=== PATIENT | female | born 1970 | race Caucasian/White ===

== ENCOUNTER → 2016-06-10 | Outpatient (CLI) | payer BC ==
[~2016-06-10] MED LIST: BCPILLS PO; TRAM-10 PO
--- NOTE | 2016-06-10 17:12 | MAMMOGRAPHY REPORT ---
BILATERAL DIGITAL SCREENING MAMMOGRAM TOMOSYNTHESIS WITH CAD: 06/10/2016 CLINICAL HISTORY: Routine screening. Patient has no complaints. TECHNIQUE: Breast tomosynthesis in addition to standard 2D mammography was performed. Current study was also evaluated with a Computer Aided Detection (CAD) system. COMPARISON: Comparison is made to exams dated: 05/07/2015 mammogram, 04/03/2014 mammogram, 04/03/2014 u ltrasound, 07/10/2013 mammogram, 01/06/2013 mammogram, and 12/27/2012 mammogram - [facility]. BREAST COMPOSITION: The tissue of both breasts is heterogeneously dense, which may obscure small ma sses. FINDINGS: There is a newly visualized 7 mm mass in the 4:00 posterior right breast, for which addit ional targeted ultrasound and possible additional mammographic views are recommended. No other suspicious mass, architectural distortion or cluster of microcalcifications is seen bilater ally. IMPRESSION: ACR BI-RADS CATEGORY 0: INCOMPLETE EVALUATION: NEED ADDITIONAL IMAGING EVALUATION The newly visualized 7 mm mass in the right 4:00 breast needs additional evaluation. The patient will be called to schedule an appointment. Approximately 10% of breast cancers are not detected with mammography. A negative mammographic repor t should not delay biopsy if a clinically suggestive mass is present. Cheri Hayes M.D. ay/:06/10/2016 16:51:15 Machine Clothing Man: Dean BOONE(Kate)(Willi), [facility] letter sent: Addl Imaging 0 BI-RADS Code: ACR BI-RADS Category 0: Incomplete Evaluation: Need Additional Imaging Evaluation
== END | disposition home or self-care (01) ==
LOC: C.MAMM 16:03
PROVIDERS: ATTEND Obstetrics & Gynecology
DX: Z12.31 Encounter for screening mammogram for malignant neoplasm of breast (principal); N63 Unspecified lump in breast

== ENCOUNTER → 2016-06-30 | Outpatient (CLI) | payer BC ==
--- NOTE | 2016-06-30 16:35 | MAMMOGRAPHY REPORT ---
ULTRASOUND OF RIGHT BREAST: 06/30/2016 CLINICAL HISTORY: 46-year-old woman called back from screening mammography for a newly visualized ma ss in the 4:00 right breast. No family history of breast cancer. COMPARISON: Comparison is made to exams dated: 04/03/2014 ultrasound, 07/10/2013 mammogram, 01/06/2013 mammogram, and 12/27/2012 mammogram - [facility]. FINDINGS: Real-time high-resolution sonographic evaluation was performed in the medial right breast . In 4:00 axis, 6 cm from the nipple, there is a multilobulated predominantly anechoic cystic appea ring mass with posterior acoustic enhancement. This measures 6.0 x 3.2 x 6.0 mm. This most likely represents a small cyst cluster or focal fibrocystic changes. The size, shape and location correlat e well with the mammographic mass seen on the cc view in the medial, posterior breast. Incidentally identified in the 2:00 right breast, 2 cm from the nipple is an oval parallel circumscribed slightl y hypoechoic solid versus cystic mass. This measures 5.7 x 4.3 x 8.2 mm. Additional sonographic evaluation was performed in the area of linear vertical skin erythema in the midsternum. There is no evidence of focal skin thickening or an intradermal lesion. No subcutaneou s solid or cystic mass is seen. IMPRESSION: ACR-BI-RADS CATEGORY 3: PROBABLY BENIGN - FOLLOW-UP RECOMMENDED 1. There is a multilobulated cystic appearing mass in the 4:00 right breast on ultrasound measuring 6 mm in maximum dimension, thought to correlate with the newly visualized mammographic mass. This most likely represents a lobulated cyst or small cyst cluster. 2. Incidentally seen is a benign appearing solid versus cystic slightly hypoechoic mass in the 2:00 right breast on ultrasound, not definitely seen mammographically even in retrospect. This could re present a complicated cyst or a benign solid mass such as a fibroadenoma. Options of follow-up seri al ultrasounds versus core needle biopsy were provided. If biopsy is preferred, would also aspirate the multilobulated cyst in the 4:00 right breast at the same time. Otherwise can follow-up both ar eas in 6 months. These results and recommendations were discussed with the patient at the time of the exam. She will consider her follow-up options and call our office to schedule her follow-up appointment. Cheri Hayes M.D. ay/:06/30/2016 14:56:58 Legal Referee: Dr. Cheri Hayes, [facility] letter sent: Follow Up Recommended 3 BI-RADS Code: ACR-BI-RADS Category 3: Probably Benign
== END | disposition home or self-care (01) ==
LOC: C.MAMM 14:03
PROVIDERS: ATTEND Obstetrics & Gynecology
DX: N63 Unspecified lump in breast (principal)

== ENCOUNTER → 2016-07-08 | Outpatient (CLI) | payer BC ==
--- NOTE | 2016-07-08 09:06 | Discharge Instructions ---
Discharge Instructions Procedure Procedure Date: Jul 08, 2016. Reason for visit: Right Mass/Cyst Aspiration. Discharge Discharge Date: Jul 08, 2016. Discharge Diagnosis: status post breast biopsy Instructions Activity Recommendations: Additional Limitations (see below) Return to School/Work: no limitations Recommended Home Diet: No Limitations Provider Instructions: ACTIVITY RECOMMENDATIONS: * No lifting, pushing, pulling or exercising the affected side for three days. RETURN TO SCHOOL/WORK: * You may return to work/school after the procedure, but do not perform any strenuous activities for 24 to 48 hours. MEDICATIONS: * Tylenol (two 325 mg) every four to six hours if needed for mild pain (if not allergic to Tylenol). DIET: * Resume previous diet. SPECIAL CARE INSTRUCTIONS: * Keep biopsy site dry for 24 hours. May shower after 24 hours, but do not soak (bathe) incision. * May remove Tegaderm (plastic patch) tomorrow AFTER showering. * Leave the steri-strips on for one week. Allow the steri-strips to fall off by themselves. If not off after one week, you may remove them. You may place a Bandaid crosswise over the strips, if desired. * Apply ice 10 minutes on and 10 minutes off as needed. * Wear a bra at bedtime to sleep more comfortably for 2-3 days. * Your referring physician should have the results after approximately 5 to 7 business days. * Call for unusual bleeding, fever, drainage, etc or if you have any questions call during normal business hours or after hours call Dr Macias, [phone]. FOLLOW UP VISIT: Follow-up with Referring Physician as scheduled. Allergies Coded Allergies: No Known Allergies (Verified Allergy, Unknown, 06/13/03) Jonathan Mary Recommendations: Call your doctor if: * Temperature above 101 degrees * Pain not relieved by pain medicine ordered * There is increased drainage or redness from any incision * You have any unanswered questions or concerns. Your Doctors Instructions noted above were prepared by provider Martha Macias. Patient Signature Section: Patient Instructions Signature Page Rika Blair Patient (or Guardian) Signature/Date: I have read and understand the instructions given to me by my caregivers. Caregiver/RN/Doctor Signature/Date: The above-named patient and/or guardian has received patient instructions on this date. + Original Patient Signature Page (only) stays with chart. Please make copy for patient.
--- NOTE | 2016-07-08 12:37 | MAMMOGRAPHY REPORT ---
ULTRASOUND GUIDED BIOPSY RIGHT BREAST: 07/08/2016 CLINICAL HISTORY: Right 2:00 breast mass. PATIENT CONSENT: The procedure, risks and benefits were discussed with the patient and informed writ ten consent was obtained. A timeout was performed immediately prior to the procedure. PROCEDURE DESCRIPTION: With ultrasound guidance, aseptic technique, and lidocaine as the local anest hetic (1% lidocaine to anesthetize the skin and 1% lidocaine with epinephrine to anesthetize the kostas per tissues), the mass of concern in the right 2:00 breast was sampled 3 times with a 14-gauge Achie ve biopsy needle. Immediately thereafter, with ultrasound guidance, aseptic technique, and lidocain e as the local anesthetic, a metallic localizer clip was placed centrally in the mass. Direct press ure was applied to the site immediately post procedure and hemostasis was achieved. Postprocedure u nilateral mammograms were performed to confirm placement of the clip in the expected location of the breast mass. The patient tolerated the procedure without complication. She was given wound care instructions. The specimens were sent to pathology for analysis. COMPARISON: Comparison is made to exams dated: 06/30/2016 ultrasound, 06/10/2016 mammogram, 05/07/2015 m ammogram, 04/03/2014 mammogram, 07/10/2013 mammogram, and 01/06/2013 mammogram - [facility]. IMPRESSION: ULTRASOUND GUIDED BIOPSY Ultrasound-guided core needle biopsy of the right 2:00 breast mass, with clip placement. The patien t will receive pathology results from her referring provider. Martha Macias M.D. /:07/08/2016 09:11:17 Health Program Specialist: Latisha BOONE(Kate)(M), [facility]
--- NOTE | 2016-07-08 12:37 | MAMMOGRAPHY REPORT ---
ASPIRATION RIGHT BREAST: 07/08/2016 CLINICAL HISTORY: Right 4:00 breast cyst. PATIENT CONSENT: The procedure and risks of ultrasound-guided cyst aspiration were discussed in full with the patient. Both oral and written consents were obtained. PROCEDURE DESCRIPTION: With ultrasound guidance, aseptic technique, and 1% lidocaine as a local anes thetic, the mass of concern in the right 4:00 breast was aspirated to completion. Benign type clear -yellow fluid was obtained and discarded. Direct pressure was applied to the site immediately post procedure and hemostasis was achieved. The patient tolerated the procedure without complication. S he was given wound care instructions. COMPARISON: Comparison is made to exams dated: 06/10/2016 mammogram, 05/07/2015 mammogram, 04/03/2014 ma mmogram, 07/10/2013 mammogram, and 01/06/2013 mammogram - [facility]. IMPRESSION: ASPIRATION Successful ultrasound-guided aspiration of the mass in the right 4:00 breast. Given that it complet cassia aspirated, it is consistent with a benign cyst. Benign type fluid was aspirated and discarded. Martha Macias M.D. ah/:07/08/2016 09:15:09 Account Manager [employer]: Latisha MATHIS)(M), [facility]
--- NOTE | 2016-07-08 12:39 | MAMMOGRAPHY REPORT ---
UNILATERAL RIGHT DIGITAL DIAGNOSTIC MAMMOGRAM TOMOSYNTHESIS: 07/08/2016 CLINICAL HISTORY: Status post ultrasound-guided biopsy of the right 2:00 breast mass. Status post a spiration of a right 4:00 breast mass. TECHNIQUE: Breast tomosynthesis in addition to standard 2D mammography was performed. Postprocedur al CC and MLO tomosynthesis images including C views were obtained. COMPARISON: Comparison is made to exams dated: 06/10/2016 mammogram, 05/07/2015 mammogram, 04/03/2014 ma mmogram, 07/10/2013 mammogram, and 01/06/2013 mammogram - [facility]. BREAST COMPOSITION: The tissue of the right breast is heterogeneously dense, which may obscure smal l masses. FINDINGS: A new biopsy marker clip is seen at the site of the biopsied mass in the right 2:00 breas t. Strandy density is seen in the right 4:00 breast from procedural changes due to the lidocaine, w hich is located at the site of the previously seen mammographic mass. The previously seen mammograp hic mass is no longer clearly evident, indicating good correlation between the aspirated sonographic mass in the right breast at 4:00 and the previously seen mammographic mass. No significant postbio psy hematoma is seen. IMPRESSION: POST PROCEDURE IMAGING FOR MARKER PLACEMENT New biopsy marker clip status post ultrasound guided biopsy of the right 2:00 breast mass. Patholog y results are pending. Additionally, the aspirated cyst in the right breast at 4:00 corresponds wit h the previously seen mammographic mass. Approximately 10% of breast cancers are not detected with mammography. A negative mammographic repor t should not delay biopsy if a clinically suggestive mass is present. Martha Macias M.D. /:07/08/2016 09:52:39 Manager Critical Care: Latisha BOONE(R)(M), [facility] BI-RADS Code: Post Procedure Imaging For Marker Placement
== END | disposition home or self-care (01) ==
LOC: C.MAMM 08:24
PROVIDERS: ATTEND Obstetrics & Gynecology
DX: N60.01 Solitary cyst of right breast (principal); D24.1 Benign neoplasm of right breast

== ENCOUNTER → 2017-06-18 | Outpatient (CLI) | payer OTHER ==
--- NOTE | 2017-06-18 14:57 | MAMMOGRAPHY REPORT ---
BILATERAL DIGITAL SCREENING MAMMOGRAM TOMOSYNTHESIS WITH CAD: 06/18/2017 CLINICAL HISTORY: Routine screening. Patient has no complaints. TECHNIQUE: Breast tomosynthesis in addition to standard 2D mammography was performed. Current study was also evaluated with a Computer Aided Detection (CAD) system. COMPARISON: Comparison is made to exams dated: 07/08/2016 mammogram, 07/08/2016 aspiration, 07/08/2016 ult rasound biopsy, 06/30/2016 ultrasound, 06/10/2016 mammogram, and 05/07/2015 mammogram - [facility]. BREAST COMPOSITION: The tissue of both breasts is heterogeneously dense, which may obscure small mas ses. FINDINGS: No suspicious masses, calcifications, or areas of architectural distortion are noted in ei ther breast. There has been no significant interval change compared to prior exams. A biopsy marker clip is again noted within the right medial breast. IMPRESSION: ACR BI-RADS CATEGORY 2: BENIGN There is no mammographic evidence of malignancy. A 1 year screening mammogram is recommended. The pa tient will receive written notification of the results. Approximately 10% of breast cancers are not detected with mammography. A negative mammographic report should not delay biopsy if a clinically suggestive mass is present. Martha Macias M.D. /:06/18/2017 07:35:57 Industrial Engineering Technologist: Gladys MATHIS)(Willi), [facility] letter sent: Normal 1/2 BI-RADS Code: ACR BI-RADS Category 2: Benign
== END | disposition home or self-care (01) ==
LOC: C.MAMM 07:10
PROVIDERS: ATTEND Obstetrics & Gynecology
DX: Z12.31 Encounter for screening mammogram for malignant neoplasm of breast (principal)

== ENCOUNTER → 2017-08-20 | Outpatient (CLI) | payer OTHER | END | disposition home or self-care (01) | LOC: C.PAPS 13:55 | PROVIDERS: ATTEND Obstetrics & Gynecology | DX: Z12.4 Encounter for screening for malignant neoplasm of cervix (principal) ==